=== PATIENT | male | born 1975 | race Caucasian/White ===

== ENCOUNTER 2023-03-26 09:42 | Outpatient (OUT) | payer OTHER, SELFPAY ==
--- NOTE | 2023-03-26 09:50 | XR_ITS ---
The [address] [address] Patient Name: NATHANIEL LOMAX MRN: [id number] date: 1975 Sex: M Assigned Patient Location: RAD Current Patient Location: [facility] Accession/Order Number: [id number] Exam Date: 03/26/2023 09:55 Report Date: 03/26/2023 10:15 At the request of: FALLON CARRASCO Procedure: XR abdomen 1V EXAM: XR abdomen 1V HISTORY: Microscopic Hematuria R31.29 COMPARISON: None. TECHNIQUE: AP view of the abdomen. FINDINGS: Nonobstructive bowel gas pattern is noted. There is no suspicious calcification. The osseous structures are intact. XR/XR abdomen 1V IMPRESSION: Nonobstructive bowel gas pattern. Constipation. Electronically authenticated by: ADELAIDE BALDWIN Date: 03/26/2023 10:15
== END 2023-03-26 09:43 | disposition home or self-care (01) ==
LOC: RAD 09:47
PROVIDERS: PCP Internal Medicine; Visit Provider Physician Assistant
DX: R31.29 Other microscopic hematuria (principal); K59.00 Constipation, unspecified
CPT/HCPCS: 74018

== ENCOUNTER 2023-04-08 08:32 | Outpatient (OUT) | payer OTHER, SELFPAY ==
--- NOTE | 2023-04-08 08:38 | CT_ITS ---
The [address] [address] Patient Name: NATHANIEL LOMAX MRN: [id number] date: 1975 Sex: M Assigned Patient Location: CT Current Patient Location: CT Accession/Order Number: [id number] Exam Date: 04/08/2023 08:55 Report Date: 04/08/2023 09:15 At the request of: FALLON CARRASCO Procedure: CT abdomen pelvis wo con EXAM: CT abdomen pelvis wo con HISTORY: Microscopic Hematuria , Abdominal Pain COMPARISON: None. TECHNIQUE: Axial soft tissue windows of the abdomen and pelvis with coronal and sagittal reformats. CT dose reduction technique was used including Automated Exposure Control. Findings: Lack of intravenous contrast limits evaluation. ABDOMEN: The liver, gallbladder, spleen, pancreas, and adrenal glands are unremarkable. Mild nonossific bilateral perinephric fat stranding. No renal stones or collecting system dilatation. The bilateral ureters are nondilated. Evaluation of the bowel is limited given the absence of oral contrast. No bowel obstruction. The appendix is nondilated. The aorta is normal caliber. Mild atherosclerotic disease. No enlarged abdominal lymph nodes or free abdominal fluid. Tiny fat-containing umbilicus hernia. Pelvis: Unremarkable bladder. The prostate is nonenlarged. No enlarged pelvic lymph nodes or free pelvic fluid. No aggressive sclerotic or lytic osseous lesions. Mild multilevel degenerative spondylosis. CT/CT abdomen pelvis wo con IMPRESSION: 1. No acute abdominal or pelvic abnormality. Electronically authenticated by: NATHANIEL OLVERA Date: 04/08/2023 09:15
== END 2023-04-08 08:33 | disposition home or self-care (01) ==
LOC: CT 08:32
PROVIDERS: PCP Internal Medicine; Visit Provider Physician Assistant
DX: R31.29 Other microscopic hematuria (principal); R10.30 Lower abdominal pain, unspecified; D72.829 Elevated white blood cell count, unspecified; R35.0 Frequency of micturition
CPT/HCPCS: 74176

== ENCOUNTER 2023-12-18 06:48 | Outpatient (OUT) | payer OTHER, SELFPAY ==
--- OUTSIDE RECORDS SUMMARY | 2023-12-18 06:50 | XMS_ITS | CCD ---
Author Organization [facility] Care Team Providers Care Sales Development Specialist Name Role Phone Unavailable Primary Care Provider Rama Valente MD Primary Care Provider Yumi Carrasco Primary Care Unavailable Ramesh Taylor Attending Unavailable Ramesh Taylor Admitting Unavailable Ramesh Taylor Attending Unavailable Ramesh Taylor Admitting Unavailable Yumi Carrasco Primary Care Unavailable Arron Ramirez Primary Care Physician UnavailArron eBgum Unavailable Unavailable Hemmer JIMBO, Yumi Wick Primary Care Unav ailPam Blanco Attending Unavailable Hemmer PAHugoC, Yumi Wick Primary Care Unav edna Montiel MD, Weston Sims Referring Unavaila agustin Montiel MD, Weston Sims Attending Unavaila ble Gely Rea Attending Unavailable Tiana LAKE, Weston Sims Referring Unavaila ble Hemmer MARYC, Yumi Wick Primary Care UnaArron Garcia Primary Care Physician UnavailArron Begum Primary Care Physician Unavailab Arron Nava Primary Care Physician Unavailab GRETA Malave Attending Unavailable JOSE OLIVEROS Attending Unavailable YUMI CARRASCO Attending Unavailable HEMYUMI PALAFOX Attending Unavailable HEMYUMI PALAFOX Attending Unavailable YUMI CARRASCO Attending Unavailable YUMI CARRASCO Attending Unavailable YUMI CARRASCO Attending Unavailable Allergies Allergy Classification Reported Allergen(s) Allergy Type Date of Onset Reaction(s) Facility (6 sources) Sulfamethoxazole / Trimethoprim Drug Allergy 02-25-19 13 [facility] (6 sources) Sulfonamides (Antibiotic) Propensity to adverse reactions to drug 01-16-20 12 Rash [facility] (5 sources) meloxicam Drug Allergy 08-07-19 23 [facility] (6 sources) Sulfonamides (Antibiotic) Allergy to substance (disorder) [facility] (1 source) Sulfonamides (Antibiotic); Translations: [sulfa drugs] Propensity to adverse reactions to drug (disorder) [facility] (4 sources) Honey bee venom Propensity to adverse reactions 10-06-19 Hives, Swelling [facility] Medications Current Medications Medication Drug Class(es) Dates Sig (Normalized) Sig (Original) cefdinir 300 mg oral capsule (1 source) Cephalosporin Antibacterial take 1 capsule by mouth twice daily cefdinir (OMNICEF) 300 MG capsule Take 300 mg by mouth 2 times daily 0 Active cholecalciferol 0.05 mg oral tablet (11 sources) Vitamin D Start: 09-12-2021 take 1 tablet by mouth once daily cholecalciferol (Vitamin D-3) 50 MCG (2000 UT) tablet Take 4,000 Units by mouth 1 (one) time each day at the same time 09/12/2021 Active take 1 capsule by mouth once jaden ly Vitamin D3 50 mcg (2,000 unit) capsule take 1 capsule by oral route daily clotrimazole 10 mg/ml topical cream (4 sources) Azole Antifungal Start: 03-26-2023 clotrimazole (Lotrimin) 1 % cream Indications: Candidiasis Apply topically 2 (two) times a day 35.4 g 03/26/2023 Active cyclobenzaprine hydrochloride 5 mg oral tablet (2 sources) Muscle Relaxant Start: 12-08-2023 End: 12-18-2023 cyclobenzaprine (Flexeril) 5 MG tablet Take 10 mg by mouth 12/08/2023 12/18/2023 Active [id number] 0.3 ml EPINEPHrine 1 mg/ml auto-injector (4 sources) alpha-Adrenergic Agonist, beta-Adrenergic Agonist, Catecholamine Start: 10-06-2023 EPINEPHrine (Epipen) 0.3 MG/0.3ML injection syringe Inject 0.3 mg under the skin 10/06/2023 Active esomeprazole 40 mg delayed release oral capsule (4 sources) Proton Pump Inhibitor take 1 capsule by mouth in the morning esomeprazole (NexIUM) [address] capsule Take 40 mg by mouth in the morning. Active lidocaine 0.05 mg/mg medicated patch (2 sources) Antiarrhythmic, Amide Local Anesthetic Start: 12-08-2023 End: 12-18-2023 lidocaine (Lidoderm) 5 % patch Place 1 patch on the skin 12/08/2023 12/18/2023 Active naproxen sodium 220 mg oral tablet (1 source) Nonsteroidal Anti-inflammatory Drug take 1 tablet by mouth three times daily as needed naproxen sodium (ALEVE) 220 MG tablet Take 220 mg by mouth 3 times daily as needed. 0 Active predniSONE 50 mg oral tablet (2 sources) Start: 12-08-2023 End: 12-13-2023 take 1 tablet by mouth once daily predniSONE (Deltasone) 50 MG tablet Take 1 tablet by mouth Daily 12/08/2023 12/13/2023 Active sildenafil 100 mg oral tablet (1 source) Phosphodiesterase 5 Inhibitor Start: 05-01-2012 sildenafil (VIAGRA) 100 MG tablet Indications: Erectile dysfunction Take 1 tablet by mouth as needed for Erectile Dysfunction. 30 tablet 3 05/01/2012 Active 1 ml testosterone cypionate 200 mg/ml injection (7 sources) Androgen Start: 11-29-2023 testosterone cypionate (Depo-Testosterone) 200 MG/ML injection Indications: Hypogonadism in male Inject 1 mL (200 mg) into the shoulder, thigh, or buttocks every 30 (thirty) days 1 mL 2 11/29/2023 Active Start: 06-26-2023 End: 11-29-2023 testosterone cypionate (Depo -Testosterone) 200 MG/ML injection Indications: Hypogonadism in male INJECT 0.5MLS INTO THE SHOULDER THIGH OR BUTTOCKS EVERY THIRTY DAYS. 1 mL 1 06/26/2023 11/29/2023 Discontinued (Reorder) Start: 01-14-2023 testosterone c ypionate (Depo-Testosterone) 200 MG/ML injection Indications: Hypogonadism in male Inject 0.5 mL (100 mg) into the shoulder, thigh, or buttocks every 30 (thirty) days. 1 mL 2 01/14/2023 Active traMADol hydrochloride 100 mg oral tablet (5 sources) Opioid Agonist Start: 11-18-2023 take 1 tablet by mouth once traMADol (Ultram) 100 MG tablet Indications: Osteoarthritis involving multiple joints on both sides of body Take 1 tablet (100 mg) by mouth every 12 (twelve) hours if needed for severe pain 60 tablet 11/18/2023 Active Start: 03-08-2023 take 1 tablet by benita th once daily traMADol (Ultram) 100 MG tablet Indications: Osteoarthritis involving multiple joints on both sides of body Take 1 tablet (100 mg) by mouth 1 (one) time each day at the same time 30 tablet 0 03/08/2023 Active Completed/Discontinued Medications Medication Drug Class(es) Dates Sig (Normalized) Sig (Original) Apple Cider Vinegar (6 sources) apple cider vine gar oral Beet Root (6 sources) take 1 tablet by benita th once daily Beet Root Take 1 tablet by mouth once daily. Fish Oils (6 sources) take 1 capsule by mo uth once daily Fish Oil 1,200 mg (144 mg-216 mg) capsule take 1 capsule by oral route daily Magnesium (6 sources) take 1 tablet by benita th once daily magnesium 250 mg tablet take 1 tablet by oral route daily Vitamin C oral (6 sources) Vitamin C oral t adarsh 1 by oral route daily zinc gluconate 50 mg oral tablet (6 sources) take 1 tablet by benita th once daily zinc gluconate 50 mg tablet take 1 tablet by oral route daily Problems Active Problems Problem Classification Problem Date Documented Date Episodic/Chronic Allergic reactions (3 sources) Allergy to honey bee venom; Translations: [Bee allergy status] Onset: 4 11-29-2023 Episodic Cardiac dysrhythmias (1 source) Palpitations; Translations: [Palpitations] Episodic Disorders of lipid metabolism (5 sources) Mixed hyperlipidemia; Translations: [Mixed hyperlipidemia] Onset: 3 08-06-2022 Chronic Disorders of teeth and jaw (6 sources) Arthralgia of temporomandibular joint, unspecified side Episodic Esophageal disorders (4 sources) Gastroesophageal reflux disease without esophagitis; Translations: [Gastro-esophageal reflux disease without esophagitis] Onset: 4 04-26-2023 Chronic Essential hypertension (20 sources) Essential (primary) hypertension; Translations: [Essential hypertension] Onset: 4 11-29-2023 Chronic Nutritional deficiencies (5 sources) Vitamin D deficiency; Translations: [Vitamin D deficiency, unspecified] Onset: 3 08-06-2022 Chronic Osteoarthritis (7 sources) Osteoarthritis of multiple joints ; Translations: [Polyosteoarthritis, unspecified] Onset: 3 08-06-2022 Chronic Other circulatory disease (12 sources) Other specified symptoms and signs involving the circulatory and respiratory systems Onset: 4 Episodic Other connective tissue disease (4 sources) Muscle weakness of limb; Translations: [Other symptoms and signs involving the musculoskeletal system] 12-10-2023 Episodic Other ear and sense organ disorders (6 sources) Unspecified hearing loss, unspecified ear Chronic Other endocrine disorders (12 sources) Male hypogonadism; Translations: [Testicular hypofunction] Onset: 3 Resolved: 3 07-12-2022 Chronic Other nervous system disorders (4 sources) Unable to stand up; Translations: [Other general symptoms and signs] 12-10-2023 Episodic Other non-traumatic joint disorders (6 sources) Arthropathy of spinal facet joint; Translations: [Spondylosis without myelopathy or radiculopathy, lumbosacral region] Onset: 4 12-10-2023 Chronic Other nutritional; endocrine; and metabolic disorders (7 sources) Body mass index 30+ - obesity; Translations: [Obesity, unspecified] Onset: 3 08-06-2022 Chronic Other nutritional; endocrine; and metabolic disorders (7 sources) Obesity, unspecified Onset: 4 Chronic Other upper respiratory disease (6 sources) Other voice and resonance disorders Episodic Other upper respiratory disease (6 sources) Other diseases of larynx Episodic Peripheral and visceral atherosclerosis (16 sources) Atherosclerosis of aorta; Translations: [Atherosclerosis of aorta] Onset: 4 04-26-2023 Chronic Spondylosis; intervertebral disc disorders; other back problems (4 sources) Spondylosis of thoracolumbar spine; Translations: [Spondylosis without myelopathy or radiculopathy, thoracolumbar region] Onset: 4 12-10-2023 Chronic Spondylosis; intervertebral disc disorders; other back problems (11 sources) Cervicalgia; Translations: [Sciatica, right side] Onset: 4 Episodic Substance-related disorders (7 sources) Tobacco dependence syndrome; Translations: [Nicotine dependence, unspecified, uncomplicated] Onset: 3 08-06-2022 Chronic Past or Other Problems Problem Classification Problem Date Documented Date Episodic/Chronic Inflammatory conditions of male genital organs (6 sources) Orchitis; Translations: [Orchitis] Onset: 01-16-2012 01-16-2012 Episodic Malaise and fatigue (5 sources) Fatigue; Translations: [Other fatigue] Onset: 08-06-2022 08-06-2022 Episodic Other circulatory disease (5 sources) Elevated blood-pressure reading without diagnosis of hypertension; Translations: [Elevated blood-pressure reading, without diagnosis of hypertension] Onset: 08-06-2022 Resolved: 04-26-2023 08-06-2022 Episodic Unclassified (2 sources) Spondylosis of thoracolumbar spine 12-10-2023 Results Test Name Value Interpretation Reference Range Facility XR LUMBAR SPINE (2-3 VIEWS)o n 12-08-2023 XR LUMBAR SPINE (2-3 VIEWS) EXAMINATION: XRAY VIEWS OF THE LUMBAR SPINE 12/08/2023 5:46 pm COMPARISON: None. HISTORY: ORDERING SYSTEM PROVIDED HISTORY: pain TECHNOLOGIST PROVIDED HISTORY: pain FINDINGS: Lumbar vertebral bodies are normal in height and alignment. No evidence of fracture. Visualized sacrum is unremarkable. Multilevel spondylosis in the thoracolumbar junction. Mild facet arthropathy in the lumbosacral junction. IMPRESSION: No acute osseous abnormalities. Interpreted by: Kings Garcia MD Signed by: Kings Garcia MD 12/08/23 Final result Normal [facility] - Chemistry and C hemistry - challengeon 07-10-2023 Albumin [Mass/Vol] 4.70 g/dL Invalid Interpretation Code 3.7-5.0 [facility] Albumin/Globulin [Mass ratio] 1.4 {ratio} Invalid Interpretation Code 1.0-2.4 [facility] ALP [Catalytic activity/Vol] 67.0 U/L Invalid Interpretation Code 31-155 [facility] ALT [Catalytic activity/Vol] 28.0 U/L Invalid Interpretation Code 0-50 [facility] Anion gap [Moles/Vol] 17 mmol/L Invalid Interpretation Code 10-20 [facility] AST [Catalytic activity/Vol] 31.0 U/L Invalid Interpretation Code 0-40 [facility] Bilirubin [Mass/Vol] 0.50 mg/dL Invalid Interpretation Code 0.0-1.0 [facility] Calcium [Mass/Vol] 9.50 mg/dL Invalid Interpretation Code 8.5-10.8 [facility] Chloride [Moles/Vol] 102.0 mmol/L Invalid Interpretation Code 100-112 [facility] Cholesterol [Mass/Vol] 148.0 mg/dL Invalid Interpretation Code 0-200 [facility] Cholesterol in HDL [Mass/Vol] 37.0 mg/dL Invalid Interpretation Code 36-100 [facility] Cholesterol in LDL [Mass/Vol] 94.0 mg/dL Invalid Interpretation Code 0-130 [facility] Cholesterol in VLDL [Mass/Vol] 17.0 mg/dL Invalid Interpretation Code 0-39 [facility] Cholesterol.total/C holesterol in HDL [Mass ratio] 4 {ratio} Invalid Interpretation Code [facility] CO2 [Moles/Vol] 23.0 mmol/L Invalid Interpretation Code 23-30 [facility] Creatinine [Mass/Vol] 0.90 mg/dL Invalid Interpretation Code 0.5-1.5 [facility] Glucose [Mass/Vol] 78.0 mg/dL Invalid Interpretation Code 80-117 [facility] Potassium [Moles/Vol] 4.50 mmol/L Invalid Interpretation Code 3.5-5.3 [facility] Protein [Mass/Vol] 8.10 g/dL Invalid Interpretation Code 6.3-7.9 [facility] Sodium [Moles/Vol] 137.0 mmol/L Invalid Interpretation Code 135-148 [facility] Triglyceride [Mass/Vol] 86.0 mg/dL Invalid Interpretation Code 30-150 [facility] Urea nitrogen [Mass/Vol] 18.0 mg/dL Invalid Interpretation Code 7-25 [facility] Urea nitrogen/Creatinine [Mass ratio] 20 mg/mg Invalid Interpretation Code 6-20 [facility] No Panel Informationon 07-09 105 Invalid Interpretation Code [facility] VL Carotid Duplex Bilateralo n 06-24-2023 VL Carotid Duplex Bilateral Preliminary Technologist Report Bilateral carotid ultrasound study was performed. Please see the information that is listed below. Retouching Operator: Shamika James LPN/DANIELT Radiologist Report BILATERAL CAROTID DUPLEX ULTRASOUND STUDY CLINICAL INFORMATION: 48-year-old male with aortic stenosis and hypertension.. COMPARISON: No relevant prior. TECHNIQUE: Color flow and winston-scale imaging of the carotid and vertebral arteries with doppler spectral analysis. Brachial systolic pressures are symmetrical and measure 146 mm hg on the right and 148 mm hg on the left. FINDINGS: LEFT CAROTID AND VERTEBRAL: CCA 106.44 cm/s BULB 72.52 cm/s ECA 66.94 cm/s ICA Prox 60.34 cm/s Dist 47.89 cm/s VERT 35.68 cm/s antegrade Estimated Stenosis by Velocity Criteria in the ICA = <50% ICA/CCA Ratio = 0.6 RIGHT CAROTID AND VERTEBRAL: CCA 90.43 cm/s BULB 59.40 cm/s ECA 93.52 cm/s ICA Prox 59.40 cm/s Dist 45.17 cm/s VERT 35.06 cm/s antegrade Estimated Stenosis by Velocity Criteria in the ICA = <50% ICA/CCA Ratio = 0.7 IMPRESSION: 1. No evidence for greater than 50% stenosis of the ICAs by velocity criteria. 2. Antegrade flow in the vertebral arteries. Final Signed by: Anil Gu MD Signed (Electronic Signature): 06.24.2023 12:59 pm Transcribed by: Anil Gu MD Transcribed DT/TM: 06.24.2023 9:20 (If Report is Signed, Electronically Signed in Other Vendor System) Normal [facility] No Panel Informationon 06-16 Tobacco smoking status Current Tobacco User Invalid Interpretation Code [place] So1 Coding Summaryon 05-21-2023 Coding Summary HTMLBase 64 EkcsonkuQCg3iAi+PGh lYWQ+RF3GCYUjO24vkC ZkwS0zT4KBRWpMLinwH VMXLPkSHbXiwjZaCH0u aXNjZXJu IC8+AY3mDJSgUzyfzMS in7I3yZP9R95qqr2wLE hbmJJ6PQAePlEchcfrz 1unwBc0XKvgCldgOgWf RHQdgN83LPF7tF58Vk1 9aCBevCOev7thrKp0Uh TsHWYtBOT5oCllXYdny 0TqQJZgN59wuHZcw4Y8 IGNvbGxhcHNlOyBlbXB 1yG8uBEimctjpq7cuqm xxEvc6er65aVCtg0Y7i RR8F3UlysF6HQHieLMw YqttaGIIwP5gdmhpj5h gcjmrTeVzMAEzKXg9LL k0KLPynRgsLhZaHV67Y LV0CWLwkfLxE1SzVUBf mRiiUnY0m0L8Vw4LK5J DGmluA6NWHXZBVGomeN Q+ZN43ft29C8QlKbogH vn1VEEgXZD6pHM7lW1m KPNmQKdny0G9dQQ4C5V xwnFtvf3hy8aiAJGfJT wxS69khHCez7D2UHAqg PE1NCIbaXdwTbDuoR12 Oyc+YELdwVhdg4TxYmp ny7zfa6xzzDd5VopfLB XtjgJnvGpfADN5x7UsT r6aFBFqgXQ4pWW1lN3a SfEfJyD7CAsfV909MhS yaLKnVapeN61kE9BgoB A+BYWyMig1UVPfkLraL I3kA9PnFIWrgdqunUCm wSwtBI1sGVXvdkdkLBM jfC6hZTYtN9z2VbCwIy M7NCgqW3KuQQZvolniX y22jK7iLsCwKjX4ZOyz Q9StddW5ABBdjDJkCBf aPUG3W20xl1E9LDGwBI MmXYX2vPH1mO8xdMukr jogbGVmdDsgdmVydGlj XQccUAuaU601IOSxoHm nPkNvZGluZyBEYXRlOi AgMDQvMDIvMjAyNDwvd GQ+WVWnXJK7oOyoXRYe bLTfERhxWf8jdFabzPt vRE6mSPImpzdpNPAlaW 1yPNSgvQHpmHafKC6sX HOkrrhwo340QtBfTKB4 GALqdYAfS8EkrT6kTlK vUYFmUPClH7ZjsSPvFO jtS823PJlpWjK9HSMuy oZqH7IpMAZsoKztKyC6 a2R3Xi1Ko6KpwpvoO6X dkUNpUsGtQzbrRTq4H7 RkPjwvdHI+SJ85FLQgD H85FJa6TJY2zUzgSBad QLAtQ8TbsW0bTiZpHRT kZGRkOyc+PHRhYmxlIH dpZHRoPScxMDAlJyBzd QebVA4sVo5jPSNpLZFy eWhpqAEgYvKnb1pyXUL oWSmlTI2thPpbX9NlqD F4QTRvs4v8Ms12S36qI 3JvdXA+ZUPdlSU0sVW9 gA8rUuXlIbX5YCulB17 2PkHlqKFeCmgup9hso7 qszLe9SxU1NODenbKba NsuNKT9j2GdNi59K61k IHdpZHRoPSIxNSUiIHZ sgWbjxf4xtW4kJs6+PG TjhEJ8qLQ0nZ8zNiKeM hE7MNldH545HvBjsDDo Mmwht7cny3mgcDm8JrB rBIQpdfDkxUqeZHN9g2 RrXo80P5RmvHien6YyD rv9fn19hVJvh0P6pRK7 L0OcPPJvluccpCKnlMj uSH3iGWIvwusyMVGcsR 5tWSQwJ3t8VqWwOeQ8T PynQ8XuqbA4TJRhaNMh BIMxmGNEdB7plzzku8i vnqbvArBlTFCrASv0JT x8SSKotLgoOjKbEDM1A zX5IQS8jTWkuC9ylVib azmktC6hSdd+OKS2gIV ewNAARJ3pCludpQI+PH AjOYN4fJiuSTrtSWDag N9xCKEwA7d0OoOyMhK7 AUliQ8JxhkA9QZGtcNT jTZZjlZTBeS7mnkait9 mdbuxyAfSwZYPbWPm3S Tz3RICagPqvAkRgYZG5 LiQ6VFK6wRNagJ0gbQr nqdijaB2nQjg+QmlydG vqYCC6QYa1C2OsEgg5H LVopTtyRV1liOBfEKdz Wr6fwErrhFfdGQ1eCFU plrfsc483OrQgc1roKB AuvSMiVLltSZK7R34tn 1B6NBPpPBLjIRK3xRT1 xY9obXbfezldvHAonMz gdmVydGljYWwtYWxpZ2 12PSBdfNlhToOrWMx2F 4BrUgr2XUGxmPvqNC9v kYMmKTpbGi1unArojIc lBS1vEASizfulq937Ts Swe5efCJAbpKOkQKbaF QL4O27gr7W8QRXkYVUh JKR2xQL7jO5orKzapyg gbGVmdDsgdmVydGljYW zzSPklX558EFKblXmeV oYonHl7D3PqRav7IFUb jQmzML9vwXEcCNhqBd1 dqLgnaFnhAV7qMPZwid orb537XhXpu9anLXWyx TIsZSqcZTT7V56js5F9 TGQuDBDzOZK5zZS0uN7 hbGlnbjogbGVmdDsgdm DaiItfLAgeFVipZ852X HRvcDsnPlBhdGllbnQg NWdeUMw6Q5OmFqmmwJC +VM53XWMvBY51lWRbpN Dsa9zokEx6HmArMTKsT JD7mBjiBBqwk3RySWHh M27udCXrw1M3ECOwsWh mcHVjQiVqcGR8aG9zSA rntayrs5hriudqYxzdf 3lveg58gY11C59tHVjs ZHRoPSIzMCUiIHZhbGl zak8xoS6eAc9+PGNvbC C6qSD1xM9oSMXyNxN7C WbaR512NqCgoMWpKcsh o6fjp1plsCn1FdA3TQW jndOzyLblZLE8f3StUg 54P21qWEefLODnUQWnT PSrYJUvkHudtk6fzU1k Ii8+SVLcoXR5wDP3fK4 oDkOrBkM6MGfaB234Cz IqeGTxBcecN96vK6Btw XA+AJGsSzg3HFJulAdc EU0cvQRsXIfjAu5bQCX 7DcZmHfIgROwaE7RuUD AqjnbbdlnepRM6EQJwF KLahQ39Wk3diMaiEQUy vLETfG1nejuit9chiur wLaZsVIMcEYc8TYg8HX WhjQouFjGaGAD1LgD2C YZ9uMTwoD2jxVbzgshm tJ8hW0YkGEEsifjfKb1 3bI6pIoIeWfN0KIirRk c+SEVSUklORywgSkFNR CAnHfNKLlgJNZ27M5Fe Yvu3FVKhhSzpCX2tqTN nCGigJy9qgZbgfSsaBZ 6iBZUrxksnYCVrfC2nJ PVoxFWvcClgYM3tCNHy huzba026QsDoRYR5CFK wgKZpP7LviN8xPoYjBK NtWSMbV3MxdHVrMJjwS 358PVbwZjU3TUZhqtBn Z6GtNSVbgQbgZsI5i6Q 2Sp4nYB0eOC3hIZu9FI 92VO31zFFkj6D3mWD8L 6NeXOOaicceahjoeUK4 YJMvVMJgxE69rJQvAKj lOv3yu2J5y077BSOrYW MoaH37Ie0vmCuaUENgl KXSnF5uxsnqh3ksnvjr CbSuORWbSUe7HMw0DOB coLggSzTtVUQ1FcR5XN N6lGQacV6djMykyxfai G9wOyc+NDcgWWVhcnM8 N8IxGcf2FCAsmTibOE9 kmIZuRKohRv2clGvtdB miRW0fAQZhajwlOLYnn J3oIAKsiCGjhEzmKI0n VLUccghgn741OwFgZKA 6HWZzaTPaI1NymQ9rTr PsZSXmAYHsW6QmnCJeE BewX641LUmtGrM5VOLz siSiY3VwJONvdVlvNqA 1x3K2Lh5KEVsACE45DW 05cOEux8P3eON6T3NaL PYgwrtuuvaycAL9ARMo IKArlZ27uVJnALgmHt5 ub2Y7r888GCOiIXYutZ 04Qt8ggMezVQPdiZQNn U0bexczv5dnnnruDkWu FRPrYRe9LLa5XEBrqOj yEmEwCBD8WhP1CZJ9pN DwhK3paJzwpptkgD3zT yc+L3K2H8TeTrslgOM+ UV70TBArDX75mZFdyGS gh6qmwTa9NgFsCBBgZI X7pRobUJxjz8ItSLLvO 60vbYLsb2B8EIJyuUkl vICaYpKigMQ3cQ9uMXc mwsiry8mbfaneXweso2 cqzw63nC07K76pWAnyM HRoPSIzMCUiIHZhbGln rh6qeX7fLf5+PGNvbCB 7gWK8vJ8nRzNcBbA9QD yvC384FiSbjBDwUgkpn 8tyy9xonFs0BaEsUULo plNooOfoIND2m9FvCu1 4M08yJRteAVGnBOPtSA QwQFZgbGivom1woI1nT i8+SA4uu6omxy34rL89 dHI+ZRFnPZL5hHpeSWy iHEEamE5kORfmQjH9RT ZhJtXmdM01qEIpQQfoW h6tfLuuoKozOH2xRWPc cvcaa560YjZyb3rfWKU ypNFgXNwhNWF7R33jy5 S4ABJkBCQoWFH0eQF4w Y2wuShkqypcrQHxgXae iuOeqHavXPisPIejF31 3MRVsqGnbSzKtmVZaT3 yknvYDLX6eYsqxaEU+P YWoFWD5oIpkGQzlJYUn pI3eOQJyF6j7PyUlVfS 1ZPyvO4XcbtH9BPKagE HrAWApmQYYkX0tnqvvy 6onuebqLjWgMEFiHLj3 WVx4NDJpeIxaWdDlDID 9TkN2KYJ0mUOhkL3aeW wizdilkA2qLdi+RklOO jwvdGQ+ZYUgYMX7gVxs KCxpGEUlrD8yFVBpV7f 8GxMtErJ3KXxuJ0Hvng S1KTVgmAIsQUFdoSYUb P3ejgwiy1edbbilOxLu VGCmOCn0AZb2ANJjdVa cAwQiVMF5MdG8TVQ7mP UhtI2zwOhasgzazS3uD yc+TVJOOjwvdGQ+PHRk MJB8rWelVGlfQWXaxR6 mYQIuZ7z2WaCsCvO5AE dyQ0WfmuR4FUMsjRUtG JXqlFOMdM7mlatah6uq uzhjQfHlGHVgYWo8CAs 8CEUjqKdwLlZjRUM1Gk D0FWP8sABngY5amPqwx hyzvA9wPlu+HPY8KHM1 SJ25AD28Y1JuPmgmdNJ ibGU+PHRhYmxlIHdpZH RoPScxMDAlJyBzdHlsZ Y4vTa1iBBJzKPQjwRmi cHN (more content not included)... [facility] Provider Orderson 05-14-2023 Provider Orders [id number] [facility] Sperm Count Post Vason 05-13 Post Vas Screen None [facility] Comment on above: Performed By: #### 1 [id number] #### [facility] (DEFAULT) [address] [place] [address] Semen WBC >20 [facility] Comment on above: Performed By: #### 1 [id number] #### [facility] (DEFAULT) [address] [place], [place] [id number] Audiology Office/Clinic Note on 04-25-2023 Audiology Office/Clinic Note History Patient was seen today for a hearing test. He was seen prior to his appointment with Dr. Montiel. Patient reports a long history of aural fullness, bilaterally (left worse than right). He feels like he has water in his ears which never clears. He denies hearing loss and tinnitus. He reports some episodes of dizziness when the aural fullness is at it's worst. He denies family history of hearing loss and history of noise exposure. He additionally notes tenderness in his neck and reports his father has a history of throat cancer so he would like to have this checked. Otoscopy was unremarkable, bilaterally. Tympanometry yielded Type C tympanogram in the right and Type As with negative pressure in the left. Pure tone testing revealed normal hearing through 3kHz sloping to a moderate sensorineural hearing loss, bilaterally. Note air-bone gap in the right ear 500-1000Hz. Word recognition ability RIGHT: 96% @ 65dB LEFT: 100% @ 65dB Using recorded IRAJ W22 1 & 2 word lists. Summary Results were reviewed with the patient and his . Findings from today?s testing revealed normal hearing through 3kHz sloping to a moderate sensorineural hearing loss, bilaterally, with air-bone gaps noted in the right ear 500-1000Hz. Recommendations 1. Follow-up with ENT as scheduled. 2. Re-test hearing every 1-2 years or sooner if changes are noted. 3. Hearing protection in noise. Electronically signed by Gely Rea 04/25/23 12:05 EST Normal [facility] Otolaryngology Office/Clinic Noteon 04-25-2023 Otolaryngology Office/Clinic Note Chief Complaint Pt states fluid in ears History of Present Illness This is a very pleasant 47-year-old gentleman who comes here today with complaints related initially to his ears. He complains of fullness in his ears with pressure worse in his left ear. There is no drainage but there is some discomfort. He denies history of significant noise exposure except to music. He does so go hunting but apparently uses protection. In addition he complains of reflux needing antiacids multiple times as well as some associated hoarseness. He is a smoker about a pack a day but consumes no alcohol. There is no dysphagia but there is occasional globus sensation. Review of Systems General Cardiovascular EENMT Ear drainage: Yes Ear pain: No Hoarseness: No Nasal congestion: Yes Nasal discharge: Yes Sore_throat: No Tinnitus: Yes Gastrointestinal Genitourinary Hematologic/Lymphat ic Musculoskeletal Neurological Psychiatric Respiratory Skin Physical Exam Vitals & Measurements T: 36.7 ?C (Temporal Artery) HR: 79 (Peripheral) BP: 157/105 HT: 184.5 cm WT: 126.6 kg WT: 126.6 kg (Dosing) BMI: 37.19 General: [Alert and oriented, well nourished, no acute distress]. Eye: [PERRL, EOMI, normal conjunctiva]. HENT: [Normocephalic Ears: Both external ears are healthy without disease. The ear canals are clear with minimal cerumen and the TMs were visualized using the microscope noting no evidence of acute or chronic disease. The middle ears are aerated and landmarks are unremarkable. Nose: External nose midline without deformity. The septum has some mild spurring anteriorly but otherwise the airway is adequate without purulence or stasis. OC/OP: Good dental repair with healthy moist mucosa. Oropharynx reveals a very active gag reflex with no postnasal drainage. Neck: [Supple, bilateral TMJ pain to discomfort with jaw motion as well as discomfort involving the stylohyoid musculature., no lymphadenopathy]. Lungs: [Clear to auscultation and percussion, non-labored respiration]. Heart: [Normal rate, regular rhythm, no murmur, gallop or edema]. Skin: [Skin is warm, dry and pink, no rashes or lesions]. Neurologic: [Awake, alert, and oriented X3, CN II-XII intact]. Psychiatric: [Cooperative, appropriate mood and affect]. Flexible laryngoscopy: I decongested and anesthetized patient's nasal airway and approximately 5 minutes later perform flexible endoscopy through the patient's left nostril.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
--- NOTE | 2023-12-18 07:04 | MR_ITS ---
The [address] [address] Patient Name: NATHANIEL LOMAX MRN: [id number] date: 1975 Sex: M Assigned Patient Location: MRI Current Patient Location: Accession/Order Number: [id number] Exam Date: 12/18/2023 07:05 Report Date: 12/19/2023 07:29 At the request of: FALLON CARRASCO Procedure: MR lumbar spine wo con EXAMINATION: MR lumbar spine wo con HISTORY: arthopathy of lumbosacral facet joint COMPARISON: No relevant comparison available. TECHNIQUE: A variety of imaging planes and parameters were utilized for visualization of suspected pathology. FINDINGS: For the purposes of numbering, sagittal T2 image # 8 extends from the T11 vertebral body superiorly to the S3 level inferiorly. PARASPINAL AREA: Normal with no visible mass. BONES: Normal alignment with no acute fracture or spondylolisthesis. No bone edema. Moderate spondylosis CORD/CAUDA EQUINA: Normal caliber, contour, and signal intensity. DISC LEVELS: 12-L1: No significant disc/facet abnormality, spinal stenosis, or foraminal stenosis. L1-L2: No significant disc/facet abnormality, spinal stenosis, or foraminal stenosis. L2-L3: Right foraminal disc herniation of the extrusion type extending posteriorly up to 4.3 mm best seen on sagittal image #12. This effaces the exiting nerve. No central canal or left foraminal stenosis L3-L4: Disc desiccation. No significant disc bulge or herniation. No central or foraminal stenosis L4-L5: Disc desiccation. No significant disc bulge or herniation. No central or foraminal stenosis L5-S1: Disc space narrowing and disc desiccation. No central or foraminal stenosis MR/MR lumbar spine wo con IMPRESSION: Right foraminal disc herniation L2-L3 effacing the exiting nerve. These findings are consistent with the patient's clinical symptoms Electronically authenticated by: JESSICA PETERSON Date: 12/19/2023 07:29
== END 2023-12-18 06:49 | disposition home or self-care (01) ==
LOC: MRI 06:48
PROVIDERS: PCP Internal Medicine; Visit Provider Physician Assistant
DX: M47.817 Spondylosis without myelopathy or radiculopathy, lumbosacral region (principal); M47.815 Spondylosis without myelopathy or radiculopathy, thoracolumbar region; R68.89 Other general symptoms and signs; R29.898 Other symptoms and signs involving the musculoskeletal system; M51.26 Other intervertebral disc displacement, lumbar region
CPT/HCPCS: 72148

== ENCOUNTER 2023-12-23 19:40 | Emergency (ER) | payer OTHER, SELFPAY ==
[2023-12-23 19:51] VITALS: BP 148/102; PULSE 88; TEMP 36.7; O2SAT 98; BMI 323.5
--- NOTE | 2023-12-23 19:58 | ED.BACK1 ---
HPI HPI - Back Pain/Injury General Chief Complaint: Back Pain/Injury Stated Complaint: BACK PAIN Time Seen by Provider: 12/23/23 19:45 Source: patient Mode of arrival: stretcher History of Present Illness HPI Narrative: This 48-year-old male presents for evaluation of severe right sided back pain. He states he twisted a couple weeks ago and has been having pain since that time. He was seen by his family physician and an MRI of his lumbar spine was ordered that shows a L2-L3 right foraminal disc herniation of the extrusion type extending posteriorly to 4.3 mm that effaces the exiting nerves with no central canal or left foraminal stenosis. The patient states he was referred to neurosurgery but has not had an appointment made for him yet. He states he is having severe right sided back pain that goes down his leg with numbness and tingling of the right thigh and a stabbing sensation into the right knee with decreased sensation from his knee to his foot. He has not lost bowel or bladder control but states he typically can sleep all night without having to urinate but he now has to get up several times throughout the night to urinate and when he gets up he has muscle spasms in his back. He had to be helped out of his car due to the fact that he cannot stand or sit comfortably. He denies any shy injury. He denies any chest pain or shortness of breath. He has been prescribed tramadol without significant relief of his pain Related Data Home Medications ?Medication ?Instructions ?Recorded ?Confirmed tramadol 100 mg tablet 100 mg PO Q6H 12/23/23 12/23/23 Allergies Allergy/AdvReac Type Severity Reaction Status Date / Time No Known Drug Allergies Allergy Verified 12/23/23 19:56 Opioid HPI Opioid Management Most Recent Opioid Data: No Data to Display Review of Systems ROS Status of ROS 10 or more systems reviewed and unremarkable except as noted in history and below PFSH PFSH Social History Little interest or pleasure in doing things: not at all Feeling down, depressed, or hopeless: not at all Exam Narrative Exam Narrative: Vital signs and Nursing Notes reviewed: Patient is afebrile with a normal pulse, blood pressure is elevated 148/102, he is not hypoxic with pulse ox of 98% on room air General: Awake, alert, oriented, nontoxic but uncomfortable appearing male, no respiratory distress he is lying flat on the bed HEENT: Normocephalic atraumatic, mucous membranes are moist and pink, eyes are clear, normal conjunctiva, vision is grossly intact Chest: Lungs are clear to auscultation with good air entry, there is no wheezing rhonchi or rales appreciated no accessory muscle use, patient is speaking in complete sentences-no chest wall tenderness to palpation CVS: Regular rate and rhythm S1-S2, no murmurs rubs or gallops, pulses are brisk and equal bilaterally ABD: Soft, nondistended, nontender, no rebound guarding or rigidity, bowel sounds are normal, no pulsatile masses appreciated Musc: There is tenderness distal palpation in the right lower lumbar spine and right buttock area. There is dysesthesia of the right thigh but the patient is able to sense my light touch and pressure. There is no saddle anesthesia. Push pulls of the lower extremities were done but diminished on the right compared to the left. Skin: Normal in appearance without rash,pallor, petechiae or purpura Neuro: No focal deficits Constitutional Vital Signs, click to edit/add: Last Vital Signs Temp 98.0 F 12/23/23 19:51 Pulse 78 12/23/23 22:06 Resp 18 12/23/23 22:06 BP 163/102 H 12/23/23 22:06 Pulse Ox 98 12/23/23 22:06 O2 Del Method Room Air 12/23/23 22:06 Course Vital Signs Vital signs: Vital Signs Temperature 98.0 F 12/23/23 19:51 Pulse Rate 88 12/23/23 19:51 Respiratory Rate 18 12/23/23 19:51 Blood Pressure 148/102 H 12/23/23 19:51 Pulse Oximetry 98 12/23/23 19:51 Oxygen Delivery Method Room Air 12/23/23 19:51 Temperature 98.0 F 12/23/23 19:51 Pulse Rate 78 12/23/23 22:06 Respiratory Rate 18 12/23/23 22:06 Blood Pressure 163/102 H 12/23/23 22:06 Pulse Oximetry 98 12/23/23 22:06 Oxygen Delivery Method Room Air 12/23/23 22:06 MDM - Back Pain/Injury MDM Narrative Medical decision making narrative: This 48-year-old male who was recently diagnosed with an L2-L3 herniated disc presents for evaluation of increasing pain and development of numbness and stabbing pain in his right lower extremity. These findings are consistent with his MRI. He has been using tramadol without relief of his pain and taking some of his 's muscle relaxants. He was referred to outpatient Orthopedic:/Neurosurgery but thus far unable to procure an appointment. I did speak to Dr. Tijerina who will see the patient in his office in [facility] on Saturday. He was medicated emergency department with IV Solu-Medrol, Dilaudid, IM Valium and IV Toradol. On reevaluation he is feeling better and able to move the right leg. He got out of bed and had additional spasms in his back and was placed back in the bed and given additional dose of Dilaudid and oral Valium. He will be discharged home with prescription for oral Valium, Percocet, and prednisone. He plans to see the neurosurgeon on Saturday. Discharge Plan Discharge Chief Complaint: Back Pain/Injury Clinical Impression: Herniated lumbar intervertebral disc Patient Disposition: Home, Self-Care Time of Disposition Decision: 21:36 Condition: Fair Prescriptions / Home Meds: No Action tramadol 100 mg tablet 100 mg PO Q6H Print Language: Angolan Instructions: Lumbar Disc Herniation (ED), Lumbar Radiculopathy (ED) Referrals: SEAN SMITH [Primary Care Provider] - 1 week Cyrus Balderas MD [Physician] - As soon as possible (Call office for appointment on Saturday in [place]) Discharge Date/Time: 12/23/23 22:06
[2023-12-23] MEDS: METHYLPREDNISOLONE SOD SUCC PF 125 MG/2 ML VIAL IVP (20:36)
[2023-12-23] MEDS: DIAZEPAM 10 MG/2 ML SYRINGE 5 MG IM (20:37)
[2023-12-23] MEDS: ONDANSETRON PF 4 MG/2 ML VIAL IV (20:37)
[2023-12-23] MEDS: KETOROLAC TROMETHAMINE 30 MG/ML VIAL IVP (20:37)
[2023-12-23] MEDS: HYDROMORPHONE HCL 1 MG/ML CARTRIDGE IV ×2 (20:37→21:52)
--- NOTE | 2023-12-23 21:11 | PC.NURSE ---
Pt has stated that he has had some pain relief after medications were administered. remains at bedside. Denies any needs at this time.
[2023-12-23] MEDS: OXYCODONE HCL/ACETAMINOPHEN 5MG/325MG 1 TAB PO (21:51)
[2023-12-23] MEDS: OXYCODONE HCL/ACETAMINOPHEN 5MG/325MG 2 TAB PO (21:51)
[2023-12-23] MEDS: DIAZEPAM 5 MG TABLET PO (21:51)
[2023-12-23 22:06] VITALS: BP 163/102; PULSE 78; O2SAT 98
== END 2023-12-23 22:06 | disposition home or self-care (01) ==
PROVIDERS: Emergency Provider Emergency Medicine; PCP Internal Medicine
DX: M51.26 Other intervertebral disc displacement, lumbar region (principal)
CPT/HCPCS: 96372; 96374; 96375; 96376; 99285; J1171; J1885; J2405; J2919; J3360

== ENCOUNTER 2024-01-03 08:00 | Outpatient (OUT) | payer OTHER, SELFPAY ==
--- OUTSIDE RECORDS SUMMARY | 2024-01-03 08:10 | XMS_ITS | CCD ---
Author Organization [facility] Care Team Providers Care Reporting Lead Name Role Phone Unavailable Primary Care Provider Rama Valente MD Primary Care Provider Yumi Carrasco Primary Care Unavailable Ramesh Taylor Attending Unavailable Ramesh Taylor Admitting Unavailable Ramesh Taylor Attending Unavailable Ramesh Taylor Admitting Unavailable Yumi Carrasco Primary Care Unavailable Arron Ramirez Primary Care Physician Unavailab Arron Nava Unavailable Unavailable Hemmer JIMBO, Yumi Wick Primary Care Unav ailPam Blanco Attending Unavailable Hemmer PAHugoC, Yumi Wick Primary Care Unav edna Montiel MD, Weston Sims Referring Unavaila agustin Montiel MD, Weston Sims Attending Unavaila ble Gely Rea Attending Unavailable Tiana LAKE, Weston Sims Referring Unavaila ble Hemmer MARYC, uYmi Wick Primary Care UnaArron Garcia Primary Care [...] Allergy Type Date of Onset Reaction(s) Facility (7 sources) Sulfamethoxazole / Trimethoprim Drug Allergy 02-25-19 13 [facility] (7 sources) Sulfonamides (Antibiotic) Propensity to adverse reactions to drug 01-16-20 12 Rash [facility] (6 sources) meloxicam Drug Allergy 08-07-19 23 [facility] (6 sources) Sulfonamides (Antibiotic) Allergy to substance (disorder) [facility] (1 source) Sulfonamides (Antibiotic); Translations: [sulfa drugs] Propensity to adverse reactions to drug (disorder) [facility] (5 sources) Honey bee venom Propensity to adverse reactions 10-06-19 Hives, Swelling [facility] Medications Current Medications Medication Drug Class(es) Dates Sig (Normalized) Sig (Original) cefdinir 300 mg oral capsule (1 source) Cephalosporin Antibacterial take 1 capsule by mouth twice daily cefdinir (OMNICEF) 300 MG capsule Take 300 mg by mouth 2 times daily 0 Active cholecalciferol 0.05 mg oral tablet (12 sources) Vitamin D Start: 09-12-2021 take 1 tablet by mouth once daily cholecalciferol (Vitamin D-3) 50 MCG (2000 UT) tablet Take 4,000 Units by mouth 1 (one) time each day at the same time 09/12/2021 Active take 1 capsule by mouth once jaden ly Vitamin D3 50 mcg (2,000 unit) capsule take 1 capsule by oral route daily clotrimazole 10 mg/ml topical cream (5 sources) Azole Antifungal Start: 03-26-2023 clotrimazole (Lotrimin) 1 % cream Indications: Candidiasis Apply topically 2 (two) times a day 35.4 g 03/26/2023 Active cyclobenzaprine hydrochloride 5 mg oral tablet (2 sources) Muscle Relaxant Start: 12-08-2023 End: 12-18-2023 cyclobenzaprine (Flexeril) 5 MG tablet Take 10 mg by mouth 12/08/2023 12/18/2023 Active [id number] 0.3 ml EPINEPHrine 1 mg/ml auto-injector (5 sources) alpha-Adrenergic Agonist, beta-Adrenergic Agonist, Catecholamine Start: 10-06-2023 EPINEPHrine (Epipen) 0.3 MG/0.3ML injection syringe Inject 0.3 mg under the skin 10/06/2023 Active esomeprazole 40 mg delayed release oral capsule (5 sources) Proton Pump Inhibitor take 1 capsule [...] 1 ml testosterone cypionate 200 mg/ml injection (8 sources) Androgen Start: 11-29-2023 testosterone cypionate (Depo-Testosterone) [...] Active traMADol hydrochloride 100 mg oral tablet (7 sources) Opioid Agonist Start: 12-19-2023 take 1 tablet by mouth once traMADol (Ultram) 100 MG tablet Indications: Osteoarthritis involving multiple joints on both sides of body Take 1 tablet (100 mg) by mouth every 12 (twelve) hours if needed for severe pain 60 tablet 12/19/2023 Active Start: 11-18-2023 End: 12-19-2023 take 1 tablet by mouth once traMADol (Ultram) 100 MG t ablet Indications: Osteoarthritis involving multiple joints on both sides of body Take 1 tablet (100 mg) by mouth every 12 (twelve) hours if needed for severe pain 60 tablet 11/18/2023 12/19/2023 Discontinued (Reorder) Start: 03-08-2023 take 1 tablet by benita [...] Translations: [Palpitations] Episodic Disorders of lipid metabolism (6 sources) Mixed hyperlipidemia; Translations: [Mixed hyperlipidemia] Onset: 3 08-06-2022 Chronic Disorders of teeth and jaw (6 sources) Arthralgia of temporomandibular joint, unspecified side Episodic Esophageal disorders (5 sources) Gastroesophageal reflux disease without esophagitis; Translations: [Gastro-esophageal reflux disease without esophagitis] Onset: 4 04-26-2023 Chronic Essential hypertension (20 sources) Essential (primary) hypertension; Translations: [Essential hypertension] Onset: 4 11-29-2023 Chronic Nutritional deficiencies (6 sources) Vitamin D deficiency; Translations: [Vitamin D deficiency, unspecified] Onset: 3 08-06-2022 Chronic Osteoarthritis (9 sources) Osteoarthritis of multiple joints ; Translations: [...] loss, unspecified ear Chronic Other endocrine disorders (14 sources) Male hypogonadism; Translations: [Testicular hypofunction] Onset: 3 Resolved: 3 07-12-2022 Chronic Other nervous system disorders (4 sources) Unable to stand up; Translations: [Other general symptoms and signs] 12-10-2023 Episodic Other non-traumatic joint disorders (7 sources) Arthropathy of spinal facet joint; Translations: [Spondylosis without myelopathy or radiculopathy, lumbosacral region] Onset: 4 12-10-2023 Chronic Other nutritional; endocrine; and metabolic disorders (8 sources) Body mass index 30+ - obesity; Translations: [Obesity, unspecified] Onset: 3 08-06-2022 Chronic Other nutritional; endocrine; and metabolic disorders (7 sources) Obesity, unspecified Onset: 4 Chronic Other upper respiratory disease (6 sources) Other voice and resonance disorders Episodic Other upper respiratory disease (6 sources) Other diseases of larynx Episodic Peripheral and visceral atherosclerosis (17 sources) Atherosclerosis of aorta; Translations: [Atherosclerosis of aorta] Onset: 4 04-26-2023 Chronic Spondylosis; intervertebral disc disorders; other back problems (5 sources) Spondylosis of thoracolumbar spine; Translations: [Spondylosis without myelopathy or radiculopathy, thoracolumbar region] Onset: 4 12-10-2023 Chronic Spondylosis; intervertebral disc disorders; other back problems (11 sources) Cervicalgia; Translations: [Sciatica, right side] Onset: Episodic Substance-related disorders (8 sources) Tobacco dependence syndrome; Translations: [Nicotine dependence, unspecified, uncomplicated] Onset: 3 08-06-2022 Chronic Past or Other Problems Problem Classification Problem Date Documented Date Episodic/Chronic Inflammatory conditions of male genital organs (7 sources) Orchitis; Translations: [Orchitis] Onset: 01-16-2012 01-16-2012 Episodic Malaise and fatigue (6 sources) Fatigue; Translations: [Other fatigue] Onset: 08-06-2022 08-06-2022 Episodic Other circulatory disease (6 sources) Elevated blood-pressure reading without diagnosis of [...] Kings Garcia MD 12/08/23 Final result Normal [facility] - Chemistry and C hemistry - challengeon 07-10-2023 Albumin [Mass/Vol] 4.70 g/dL Invalid Interpretation Code 3.7-5.0 [facility] Albumin/Globulin [Mass ratio] 1.4 {ratio} Invalid Interpretation Code 1.0-2.4 [facility] ALP [Catalytic activity/Vol] 67.0 U/L Invalid Interpretation Code 31-155 [facility] ALT [Catalytic activity/Vol] 28.0 U/L Invalid Interpretation Code 0-50 [facility] Anion gap [Moles/Vol] 17 mmol/L Invalid Interpretation Code 10-20 [facility] AST [Catalytic activity/Vol] 31.0 U/L Invalid Interpretation Code 0-40 [facility] Bilirubin [Mass/Vol] 0.50 mg/dL Invalid Interpretation Code 0.0-1.0 [facility] Calcium [Mass/Vol] 9.50 mg/dL Invalid Interpretation Code 8.5-10.8 [facility] Chloride [Moles/Vol] 102.0 mmol/L Invalid Interpretation Code 100-112 [facility] Cholesterol [Mass/Vol] 148.0 mg/dL Invalid Interpretation Code 0-200 [facility] Cholesterol in HDL [Mass/Vol] 37.0 mg/dL Invalid Interpretation Code 36-100 [facility] Cholesterol in LDL [Mass/Vol] 94.0 mg/dL Invalid Interpretation Code 0-130 [facility] Cholesterol in VLDL [Mass/Vol] 17.0 mg/dL Invalid Interpretation Code 0-39 [facility] Cholesterol.total/C holesterol in HDL [Mass ratio] 4 {ratio} Invalid Interpretation Code [facility] CO2 [Moles/Vol] 23.0 mmol/L Invalid Interpretation Code 23-30 [facility] Creatinine [Mass/Vol] 0.90 mg/dL Invalid Interpretation Code 0.5-1.5 [facility] Glucose [Mass/Vol] 78.0 mg/dL Invalid Interpretation Code 80-117 [facility] Potassium [Moles/Vol] 4.50 mmol/L Invalid Interpretation Code 3.5-5.3 [facility] Protein [Mass/Vol] 8.10 g/dL Invalid Interpretation Code 6.3-7.9 [facility] Sodium [Moles/Vol] 137.0 mmol/L Invalid Interpretation Code 135-148 [facility] Triglyceride [Mass/Vol] 86.0 mg/dL Invalid Interpretation Code 30-150 [facility] Urea nitrogen [Mass/Vol] 18.0 mg/dL Invalid Interpretation Code 7-25 [facility] Urea nitrogen/Creatinine [Mass ratio] 20 mg/mg Invalid Interpretation Code 6-20 [facility] No Panel Informationon 07-09 105 Invalid Interpretation Code [facility] VL Carotid Duplex Bilateralo n 06-24-2023 VL Carotid Duplex Bilateral Preliminary Technologist Report Bilateral carotid ultrasound study was performed. Please see the information that is listed below. Yarn Carrier: Shamika James LPN/HARSHAD Radiologist Report BILATERAL CAROTID DUPLEX ULTRASOUND STUDY [...] Electronically Signed in Other Vendor System) Normal [facility] No Panel Informationon 06-16 Tobacco smoking status Current Tobacco User Invalid Interpretation Code [facility] Coding Summaryon 05-21-2023 Coding Summary HTMLBase 64 AqlzersuALy1qOo+PGh lYWQ+PH7IFHLnC13lzX VkgA7zI9XCVMpYAkquB CVQXHwTXfMoszHuOX5k aXNjZXJu IC8+JX9gQEQjRscsgXC ru2B8bVG4O84mcd8oPU dleMA0FQQiIzPgonwcw 9mlaSa0CYpcLgdlKzLx EOWypV04FDD1jM26Pr7 2sHOpqEIay6axjRy4Uq XoSRZyNOE6cGfjMEwpl 4FaKXLqU22weTWno4K5 IGNvbGxhcHNlOyBlbXB 4pV0qDJsszcgny7melo lxNnw4ir07sEZom0G4k OS7T8XvsjF9UKPfkEKd EesyqIVWlE1yptgym6i riextNnCaSQQbESn5UP v1GWEyrAicFtIsIF32L BW7HGTqkyYtZ2GuSUQq oIrpGvY1a4N7Oc6RO1K KUalsV8PXGANCQDxmfC Q+CD38kl37T2JgIdyuK yg2CDBeHAX3bJY9jS5z PJLsQQizg6Y9wEW3K5H cadOxxr4tj5xnYYDgXZ sgA88ogRMoj8P6PIEdb OP2CTDzsIluAeOftZ92 Oyc+KRWlmGwdp5FvWfs lj0zyj6rskRe6YjqjED SbcrCnwPaeJJP1z0ZmH q5rQFUmlFW1yWF7iN9c WtYvRzV7LVbpG520MeB mvIJvTfcgN25jB3BtuI A+BKNkKxt9QMSgiXgzR K4fN9EkPQKcjqnqcVXq aCqsNV8aSPVmrqxqOFC gsN0oGGOfK9o0NcNsHg C7RKziT4TtONJbhouaR f18iO2oYqOuRfX0NImv T0CtpyF5KEWttSWjWOw wOQL2E34oi0L0HLGiPE AuFRL2pMZ1uC9iqNlsu jogbGVmdDsgdmVydGlj ZDmjJCjpE654DSJbiHj nPkNvZGluZyBEYXRlOi AgMDQvMDIvMjAyNDwvd GQ+YJPlXTG5gVnbNHMo dZJfAGhfAq9idOcmwGw pXS4kANZbkutsTPIfkC 1nJGMflRXqzOgtNM7oL CNagcroc903ZlBfEZH2 IMFcfLKhF6PfxU6uYsS wHBYqYQBqV3LbxMApOG ttS267GCiaYsQ1YEWzs rKaA1LnZOAguBzaIeV3 c2E8Xx7Cm6WwiajgQ0W czAUpGlZlSdhoFWu9O9 RkPjwvdHI+JH21ORFoA O93XEu1ERF6ePoqKLsq FINwB8XpdN2pXlIcYOM kZGRkOyc+PHRhYmxlIH dpZHRoPScxMDAlJyBzd WluBA2hVs1jKKRyPJVn nWaryNGlIgWja8tnGNT dVCmtBY1zcOfaG4WkkB L4UVKbs5r3Vz24D26tA 3JvdXA+FRAptAL1zMX6 dM6gIzEiToP6HWfkB11 2OlCftYOqErkie1njv5 xgaEq1BfP1YICpzeGfe YfqQDF7m0AlUq34Z56a IHdpZHRoPSIxNSUiIHZ wfSsawz8ghR0tTg3+PG UvvGH0cVG0sF0iVcSkX dZ8GTbeW013ZzNtaDAj Mctbp3plj1dinKo0OaE jMCRitmKhsIxcNYW5i4 RnVj35M7NciGhgr4GuF ym7ny53oVBpa8E2jFV8 R0GjJWPwsqbehIWimMq lLC9xMWRojpstYOQeqO 3pGTZdC5c7SaZiInX3Q ZoiZ7SoqoZ0PQXolQEt YWAisTCMvI9curvig6z phmiyHcWjUQWgGWi1ZQ g9OJPmsQtuLpDcOZT7M uA4PXC8jVRnxM4wnOmh svhebQ2qMfe+YFR2eHU ucWHYAS8pNmhupFD+PH SjCQI2kEheHWoxGQGjw T5iCJQzQ9f2DxXaIyS0 WExyX4NtdiD7ILNjnIA gZDWdrIBFzJ8owjbpl1 bvolayEfSkCFYvJYm4V Vt3KOUggQmmArBkRUW6 IkH1TNC7lCXqyI9uoQx tiucktC2qCvs+QmlydG euEOL7YIj3L6CsVzi4J JGrcCgvWX5ohIPmZAfs Ea7geTbdrBvkJM2kJBE padizl945VeXav5dvAF UcpRFgVRvfLYE2K59sc 5E4JNYzUYIyZFK7vHC6 bQ1jqEgbtwuxzCAwbHs gdmVydGljYWwtYWxpZ2 58UDQuiXobEeInGZo0R 9QiUlt4RNYjyScjVY7g hIKmAEzoHv9nwQqfcXq hPE5bFEVeythob295Ai Fqk8jcPYCgqXJcQIxtX SN0S71bw2Q2LYLfUBCs BXV3pLY2oE5piSxtbth gbGVmdDsgdmVydGljYW rsYUtoH938YGInjFjmO gXypXh0N2NxRzs7NHWm cBinIN5gwMIhTMnaFf8 jsWzpiCplQA3mNHDdtg lqc045YhFaz8mcNAFvg DMaMSilHXU0X91wi4G2 RHBtXUVhZDC6lLH9oR9 hbGlnbjogbGVmdDsgdm OrwBpaBKujFVtaZ979Z HRvcDsnPlBhdGllbnQg CXlcAYu6V3TeHhzhxZE +TT09GJPwRY80jOBynR Bej6pyjHb3DpUjXITkP EK8cDprFPxga1RwOQEz P79geAUvt9R3YOFkvFf hjHWqDbVqdHB9nO0fAH xwqshwo0xfmixgXiqcv 4kioe26yX14F95oXDyb ZHRoPSIzMCUiIHZhbGl ata6aaO1yKe8+PGNvbC O9tDN5iE3hORGiDuP0H VviA404UsZhtOIwCmau v4opl2puvJy7TrQ7YYH otdGozAjkSMP4w4JeRi 62Z32oUAbuISGoAUQzH BMwYQRezQiadb3daO2m Ii8+ZIJmmHV0nVV8pA1 rVeXwIpY4HQnfM832Kg AxgMCoXruzH44lS4Rhk XA+KSVhYsy7HDJumRox CA2riOSwYKqiPs5gFAX 4LrRtVfTjUHqfY9PaCJ XxjqosurzrpEW2DPEsT PShtZ04Ma2dnTqpUMIp bHVNhF1kkapxu6zlhqc qEuPsFMXgFDs7NDe5NR QfuIypKvXsIKN2QyH9N NE8uIEqdN1hrJakdcvw sC6eO8UuHAVanutlTs9 2xZ3aWlBnEvH7GYprMz c+SEVSUklORywgSkFNR KJtItWCHtwEOI46D5Hy Opo5RFWwwScqGZ4xaNS zGOseSx6leRvftXdgXH 1eDUEqqextNVOslS9jI TZuqRHtoBwsJJ8kTQMn wmlfr085UeNeUQL0GSG piKOxF9OqcM0vIzLuPT ZxQIZaB5JtfQLlPTjyL 453ESauQrG1UINckrDq L9WdUOVwzOykIwG8a5D 5Cg9eSV8lVY5iVVu5DZ 59IK38nIWca3M0wRR0I 1LpGQGenrbgalyafQR7 HDOlWPHrwM59gJItXHb iKb8dd8G3m352XVMgXF EsvQ26Jp0gbGdlNBQrb ZHUhS2zdwmjf5evxlqi MwYrBBGqELn5STw9USB djJdnAkMcNLX2TvO7LN N2xETeiE4sdGwgxkoob G9wOyc+NDcgWWVhcnM8 N1KqYcf9ODGtdFedTN8 ywLChVOgjRm8fwGxheA ebOI3dDUZradnwYQCfq O2bGNUwuWNmjVutWW4f YJQkfvbks457KyHeUJA 9QJNodVEwZ4WmxJ3rXa WzDCQsJROdE3YtvDVfB KwnL783HJjlAwC5NEWo bwGsS1VoWGWrcDniTsN 2n8I2Eq1FAXdNEP26RA 30fYKqq6H0aLF3N8TwM YMjxpytogtboXM4LECd ZCKztK75cWHgBVheVb7 ea9A8h764ZQEdFPWanZ 56Ci3daKbzDJSnfXJCl M1zsamjt5vlpolwOgUw LNYxUJl6PCp3SIUpvOn yVvVhGFK2KiL1JPB9yO HdpN1ziSfchhzrbX7vR yc+M3J7X9GiDsphgFW+ VH66DQCtAJ03fVHjoAE ti9gbsJq9FlIkFYLxQN J9pNlpSSybd3VbDCClF 64mxCBlz8M3YLFgmEip sPQpHkKmmNH1qR4gETm prshla6xgkbfyLuyzu2 mimn21oP73T27bKMlaK HRoPSIzMCUiIHZhbGln xj3mhH9vKw3+PGNvbCB 7sPM4kF6hLiDcMtD4AJ xlD902XzXkqVMnYsryu 9ibj0pzcCb3WuOcLHVs riBmxPhoBAB3i1HqFt0 6X78hUKxjEZEmVVIqVR IkFCRvhZvpfs2lqB1pT i8+QA8vx8xzcf56mD86 dHI+SZApNOZ1fWfoDNx xDAEpmO5vJSmgCmX8PW StPtCecI87cDRfIDbzP v7bfSspdAowYU9cBFOp mzybb220VtEcu9meIKZ kuVFxKSldMZL7B38yf7 O4OCVxWRQfKBB1lAY4i P1jjJvwjpejnYGtdXvz gqBooTcnXAqfXRmrK62 7KRRwwGmxTpAjoMIjH1 zzzmFOKS7rCkxveGP+P SFuYFT8oNdrQMnvYSTw jC1iBDFfP7d8PjBcItD 9XOfeW9IfqwC2RMStlU BsWGLeoKEMkK7wykazl 5xvbjgwGjLwTWAgSIr4 XGi5DXOyrTnsJxEeMDA 5LlI5GEQ8nFPoeI5aeA lyehztxY6uJjy+RklOO jwvdGQ+GUKmRTG2sHfn WLtuYIYepA8nNDZmJ4p 4PgUkWzW4ZEcqF0Feom J4WNAugGYnNUHseOCNd J8uytgkj9trrmpvJtMu VVHbZFx2YNi5LNSvvNa bZcKuAFG5NeJ3UFO6tQ BdwL0qjPyhghqduT8eG yc+TVJOOjwvdGQ+PHRk FDH1zPgtJWmfEUWmcU7 hYIDeB8s9BbVgIgV1KB sfJ5PfqoL0YMIqdSMlP ZTiiSKMaW8nbbmfh4lg wwvlLcDnWOQqNZo8XBh 9YNTyoAvhXjPzVZG8Qr Q7HCC1gRVskH9xdXsdp dtltM2pRhe+ILP0JJB5 AY82NO94W9GdAkenrYN ibGU+PHRhYmxlIHdpZH RoPScxMDAlJyBzdHlsZ H2gRp8eKPXqZHZdbMdt cHN (more content not included)... [facility] Provider Orderson 05-14-2023 Provider Orders [id number] [facility] Sperm Count Post Vason 05-13 Post Vas Screen None [facility] Comment on above: Performed By: #### 1 [id number] #### [facility] (DEFAULT) [address] [place] [address] Semen WBC >20 Normal [facility] Comment on above: Performed By: #### 1 [id number] #### [facility] (DEFAULT) [address] [place] [address] Audiology Office/Clinic Note on 04-25-2023 Audiology Office/Clinic [...] by Gely Rea 04/25/23 12:05 EST Normal [facility] Otolaryngology Office/Clinic Noteon 04-25-2023 Otolaryngology Office/Clinic Note [...] by Weston Montiel MD 04/25/23 10:15 EST [facility] Coding Summaryon 05-24-2022 Coding Summary [employer]Base 64 SxhelhjiTYl6aVp+PGh lYWQ+XB5ERFCqL45unO NdbR2QF7pAXC2ORUWCG OZBUL1HDM7nxDQ5KWqw N2WskiMe YyjgwVAkHI41KHu7MNR 3xTjeGDeotP5qdGKyQ3 p0XiMlKZ00vX48PRcqS HZgMwM5NoUlyagqvDEl Z2liIxQflYUaIgx+PHR hYmxlIHdpZHRoPScxMD EwJsIyiZxfOB4bSr8fS GVyLWNvbGxhcHNlOiBj v5ddMUCpLUuhHM1bxNg pJ8NxzKH9YJEpg7z6Pc 48dHI+FKCzVNG8qLtbY Lsol343RkXjf3xxNUJ0 gBNcHIplGDQ9T39lg3E 3BZLyYZVfMVE5aKV8yG 5ceEcrgyvcU9JhcDBdV jG7MMV1mEAnvE1fqHra eljutC4oTfd+I71FWV2 RQEKOAR5HCet0U8OaRe wvdHI+AZ07COUlNE20y GYwzCWhq5zrhQt6KlYx ORWjJCM0nXubYNjpf6I tFEQsT79ugLBbo1M4YZ XqsVygkMIaCqRryLY9u L2tXBmukdkgz0twypgt Ybkrl5fyqo80mP50Q75 vAZwzRHJxMWH7BAOdKV GesIlfms5wkR3gNl2+I Zqwb3muj1tojFl4InKn YCBdrySicJudKAA2p2Q rVb00S3OawQprs4ZxGx n4co28uKUbv5N8rCI5Z WlmYPSczZ0oSYszGyF4 OEViXvTgrA39nSFuJWf hWf5eeAwktUzmVG8vVC EoyvdsDCThtJ1aTLQia INnwBouEM7fPTRjxsgb j558NyNkNYS8UXIrwNQ pJ4YuhA4sHaEmTMNdCG LxE4AinOVuRDpfL573O IbvXlG8WUWsdjEdZ4Ur LGDalAisRqW4p2S7Vv0 Cq5CdoojiDUO1IBdxTB L7KxO4DuSmXzN9O6FzB so7CXPaqWsuXG6lE6Xl MSXaeauoptkdtOC0XRH qDKFduI77fXLzCWiuBh 4cp9J0b721XZUuPZRrh K97Sd9hkAkiUHRfsEFJ hS7goxrws7tnjwilBgM tWTSdAWm0IFe3XVFdlQ olRtRvLYE9TgU8HIQ8m LHmdC2fzFrobkgbkP8t Oyc+G07mkC5hWIK5GIJ 7xrlqUNXqkzJhXK14EY 00L3BrYliqiUGdqQN+P FTjzvJkbUpeTT6sCcDa g6aum6GzCHmkM2XcXCI vSJsrXyo6OCUnHBT9mU T0zB0xQBAwPQxsk1F6f BR4W4YwqrXktl2jw4zg JWXvGLbnZ93daNRru2A 3ILDilYB9JVBhvVobJv HhbP02Ntr+PGNvbGdyb 5SuGptzn7ijf1rufHd6 IjMwJSIgdmFsaWduPSJ 7h4LzTy77C65lFTjeIS RoPSIxNSUiIHZhbGlnb d7mvS0zJo8+PGNvbCB3 oNI4mY1iMTCpDpZ9QFz yY485OhJzuPKcShmjs6 oew8dpcFc6LmHaAJSvq pHiyXnmMJQ3b0BhBo49 K56cKShgXXCvAATaTXF cWZGcjRoiip4kyH7aLr 8+MC7ko4wdbr65gB39w HI+UXVuOWS2eIjqLWvj UZTvnL9bZEugJsK3ZYI pWpCqsU32hFEoKGtaCu 1kbSrgnNzcMV4xTBZah qllf692AgXlk9klSBGp bTVvKXxcDVW2G54sk5T 9AGQfSEZfMRA1mQO6uT 1hbGlnbjogbGVmdDsgd uBnxHsbWPjkMVxvL014 IHRvcDsnPlBhdGllbnQ uLdUnAWm2L9BhOvo8BO YliGzpVH4poUPkTOyvD q3iaMgtrHopRJ4qVUWd tjyjh406BkWac3mrZWD fnLGtVOrxIBO0K83sw9 C8IQDtOQGyQZF9gTZ9o O4keWurwrtcbEMnlOwp fkEawSiyKGstLJerG90 6IHRvcDsnPkJpcnRoIE NqeWS7JW82QG85yYJst 5L3rQR3I6HiJILapdvo xjnovDW3NTVfLAEdzA3 2Bu1ewAvdWt8eSOHcER Y5HNEefHRpI0YalU2cH uMdMZNzOYPdO0JyvXYz YBqrA456IJbuHwZ0DYX ldmDtU8SfOXWvaAhxLr J8r0P7Kq8VW4C7VP17T F74uGMyr6R4cPA2B9Eu CCLfsdvdurcqvZZ6MTZ wAYSunL08Kw6waPjoLe 5qZUIsWNX5ALXvtVHoH 5YhcB3wLtGrORQwSKHi T1SmhWDiSNezW243HDr xJlA5UOPoytRlA5EaEG KhtQsuXjD7i2Q2Pg1AD Sl3OO91SO17yGWex2Y9 tXP1L0TtPVWkolqaazv jrQU2XRTsYZWkoJ17Zk 3mdDriZb9wHHTaIUH4B TByqAPxS2OxlH1rLdMk KKAtEWDcE3SteLPlHIx gC169KDrfTsB4MXGxvu HjJ4AoULFezKxmDyK0r 7G2Nk8MOISxJS85SNH0 lXV1WY73ZO07L7GnBje vdGFibGU+PHRhYmxlIH dpZHRoPScxMDAlJyBzd MpoLT7eCa4hNOGqQHIj eZnutTYtKsXgx4brXEP kRDskCF2ilOgvO3SziH S7AITjy5g6Ma96H67nU 3JvdXA+CIJitAR3mVF9 bT1nBuJzReB8UOlyB32 7GtMhsXObXwhsq7azp7 lhhHd4KeQ5LZBvoyNpd SndICX9b0RyPn29K99u IHdpZHRoPSIxNSUiIHZ pzApzwf5yaD0qYs7+PG SycWC9qRE9gD9fIoAlH oF5NYmkY076QlOchJBd Wovgx7nuz0wkxWq6SmG eRFIulqFabBglUOW1o4 YyNv03H6WhuGeko1KoV gh0xr57yEZgr9A0sUH0 M4AyBIAjfvjmjNKxdCr iSY4oWJHyftruLWUllW 3qMFCyC6p9SiAqCsO7L TawG9KnprS2LQHqmMIl PHdjGLA4F85ja1U0PWV fSVOdRVX5nFJ7lG8viA lnbjogbGVmdDsgdmVyd VszBBjiOMgrM434VVPx yKohWLUwzZ1gWQWxeFT uyCibMN6wXDZwcxwcPa hFUlJJTkcsIEpBTUVTI DSWDS5XFFlAPT47UF47 gJKpo9F3tYK6J1TbTYL nicmmplwiwLA2PEFsKD AhxE75gAWwDEikDu6fa 7M8f389DWJdSHHxxJ88 Vo5lgVgsTVWjhJUIrQ6 rfique6tiletsTnFaKF NrHSc1MId7EVHywXgtQ jCaFOU4IuX2TXA0kWRx bB1cjMhcaeddxD0wCsn +FUYjMeVcQFi3SqyxvL Q+OTNuYXK9hUfuDBpfT OYwgN0jOBPeM5z5SgUy DbL8AAerF3FtSBAvchy pRb20cX6uXcEtMnU7RI jjZ8FvhfL5SHMdrWIgB NtkPKM0D24jt8I2SOHj DESrAVF4sIY7oK1qrWg nbjogbGVmdDsgdmVydG vzRPgpODbbV537TMXnq LtuQfQ4WWjnXCQeEK62 WN63cWSvn6Z8wEO5N4U iVNYbbefkrjwyvWI7FG GnPHZcwP23pJScCZtlY z0oa0S5p780HKRtWOHt qX12Yp4wiRzdMPXfdSP BoL5swywwe8rewuivCu WpDRRoCZn1RRj2ILAue KbiUrHmTIR5BcT9UMJ2 aISvqK8mgDdoftwuxK5 wOyc+TUFMRTwvdGQ+PH TaHRP4lWjbQXjvHNZjv D2pCSPxX3g9XuDrTuP6 RGnhG8EoGOTvnssdBa6 7jP5yTtUbNkZ1FQuyU3 GccbG5YTZqvEXgFSbgG RK0K51pj5R7LGTyQVXq BJM0iXE7uA1dbIanmfd gbGVmdDsgdmVydGljYW tqASnaL147PAAkgHzvC x5GFT36VG81F4IkUwem dGFibGU+PHRhYmxlIHd pZHRoPScxMDAlJyBzdH vpBF6bTl6bJJDmMVBrq CfrkIHiHoFcw3nuDXNq UVvxHU0plDoqR6KezXG 8NEHkf6p5Hc61W68rD2 JvdXA+INYviQO3qXM8h Z9vOaKvWzE9UEgbG141 RaFveNAaEgjyn2hff8g ljMv2UoDfHYMqwmAluG tpZLX4w7QyQd52H16zY HdpZHRoPSIyMCUiIHZh oQacwj7ssI8fCt8+PGN mpQG8sEU0kO1cPcWgLc K6PUgxJ378TuUazANwI gjhI17dP9WioRC+PHRy Ort7CZKewDcyRH0jiFV pEAfaWw2zKUJ1MsAvBm TrAGwgU0SaCMTxwkmfh nqmqKR9OOOsCCQwgB10 Kf7dlZqeMp2aGNIaSVV 0EJBefGQuB7YotE0yAe HdZZZwDVCbW2VrjNZuK PhkM537XJxzXsJ8RHMy xlNmJ0RuAGYjdZqrHxE 5l0J6Pv7RmGznqKOwWL 2rFhTvVOn9J0EcIwn5V VMcmMwsQE0zgSUrXTyt Yx6xbIumuUydML7tAAS ieprbr118JdYae7nkPW WmdQSzQUwiDWW9Q27ek 6E7AUEaWPKvAXC8nJG5 yS2htFntmvrgoADonJq gdmVydGljYWwtYWxpZ2 02NDNfgUfeFsFUTze3A 1KnVhn0IBJgySilSP5j fAToWVliQk1hlOcemNe eWB0sFNXvbcvss055Bo Uan0aiFUUjbKApUDejX UB3R02xg0X5JCSgCLEw NLR2zPS6dO2lrZgejzw gbGVmdDsgdmVydGljYW ahXUuaO237EJMtaDvgX l9KVxq9W8HlNdf2XROu nAouMX4vlFQnVGzkOa8 qhFllhXsrBX5uKUSxfn vwo170KfVgu3hiERVug OCoLYgvOQC1G28lf7N6 AQKhGFHxLRM2fVQ7zT2 hbGlnbjogbGVmdDsgdm GjxYjzEMxgKYbsG398D HRvcDsnPlBheWVyOjwv dGQ+LP38jw20G4PeNbd bOpb5PPSjZDT2mKD4sA 4nYOBsKIkjn8M9mZD0T 7VlhzUlnc2xt2rlHSTc ZTo (more content not included)... Normal [facility] Provider Orderson 05-23-2022 Provider Orders [id number] [email or web address] [facility] Sperm Count Post Vason 05-21 Motility Semen NonMotile Sperm Normal [facility] Comment on above: Performed By: #### 1 [id number] #### [facility] (DEFAULT) [address] [place] [address] Post Vas Screen None Normal [facility] Comment on above: Result Comment: CONC ENTRATION TECHNIQUE PERFORMED. Performed By: #### 1 [id number] #### [facility] (DEFAULT) [address] [place] [address] Semen WBC >20 [facility] Comment on above: Performed By: #### 1 [id number] #### [facility] (DEFAULT) [address] [place] [id number] Drug screen multi urineon Amphetamine Screen, Ur Negative NEGATIVE [facility] [employer] Comment on above: (Positive cutoff 1000 ng/mL) Barbiturate Screen, Ur Negative NEGATIVE [email or web address] Comment on above: (Positive cutoff 200 ng/mL) Benzodiazepine Screen, Urine Negative NEGATIVE [email or web address] Comment on above: (Positive cutoff 200 ng/mL) Buprenorphine Urine Negative NEGATIVE [facility] [employer] Comment on above: (Positive cutoff 5 ng/ml) Cannabinoid Scrn, Ur Negative NEGATIVE [email or web address] Comment on above: (Positive cutoff 50 [...] 300 ng/mL) Oxycodone Screen, Ur Negative NEGATIVE [facility] Comment on above: (Positive cutoff 100 ng/mL) Phencyclidine, Urine Negative NEGATIVE [facility] Comment on above: (Positive cutoff 25 ng/mL) [facility] Vital Signs Date Time Vital Sign Value Performing Clinician Facility 11-29-2023 08:08-0400 Body height 188 cm Yumi STUART Work Phone: [facility] 11-29-2023 08:08-0400 Body mass index (BMI) [Ratio] 32.74 kg/m2 Yumi Carrasco PA Work Phone: [facility] 11-29-2023 08:08-0400 Body weight 115.67 kg Yumi Carrasco PA Work Phone: [facility] 11-29-2023 08:08-0400 Diastolic blood pressure 92 mm[Hg] Yumi Carrasco PA Work Phone: [facility] 11-29-2023 08:08-0400 Heart rate 86 /min Yumi Carrasco PA Work Phone: [facility] 11-29-2023 08:08-0400 SaO2% (BldA) [Mass fraction] 99 % Yumi Carrasco PA Work Phone: [facility] 11-29-2023 08:08-0400 Systolic blood pressure 142 mm[Hg] Yumi Carrasco PA Work Phone: [facility] 07-25-2023 13:06-0400 Body height 185.42 cm Arron Ramirez [facility] 07-25-2023 13:06-0400 Body mass index (BMI) [Ratio] 34.43 kg/m2 Arron Ramirez [facility] 07-25-2023 13:06-0400 Body surface area Derived from formula 2.47 m2 Arron Ramirez [facility] 07-25-2023 13:06-0400 Body weight 118.39 kg Arron Ramirez [facility] 07-25-2023 13:06-0400 Diastolic blood pressure 96 mm[Hg] Arron Ramirez [facility] 07-25-2023 13:06-0400 Heart rate 80 /min Arron Ashley [facility] 07-25-2023 13:06-0400 Systolic blood pressure 140 mm[Hg] Arron Ashley [facility] 06-17-2023 16:21-0400 Body height 185.42 cm Arron Ashley [facility] 06-17-2023 16:21-0400 Body mass index (BMI) [Ratio] 35.75 kg/m2 Arron Ashley [facility] 06-17-2023 16:21-0400 Body surface area Derived from formula 2.52 m2 Arron Ramirez [facility] QRGL [facility] 06-17-2023 16:21-0400 Body weight 122.93 kg Arron Ashley [facility] 06-17-2023 16:21-0400 Diastolic blood pressure 86 mm[Hg] Arron Ashley [facility] 06-17-2023 16:21-0400 Diastolic blood pressure 92 mm[Hg] Arron Ashley [facility] 06-17-2023 16:21-0400 Heart rate 92 /min Arron Ashley [facility] 06-17-2023 16:21-0400 Systolic blood pressure 152 mm[Hg] Arron Ramirez [employer] 06-17-2023 16:21-0400 Systolic blood pressure 148 mm[Hg] Arron Ramirez [employer] 05-16-2022 11:19-0400 Body temperature 97.11 [degF] [facility] 05-16-2022 11:19-0400 Diastolic blood pressure 89 mm[Hg] [employer] 05-16-2022 11:19-0400 Heart rate 98 /min [employer] 05-16-2022 11:19-0400 Respiratory rate 18 /min ROKT 05-16-2022 11:19-0400 SaO2% (BldA) [Mass fraction] 98 % [facility] [employer] 05-16-2022 11:19-0400 Systolic blood pressure 189 mm[Hg] [employer] Encounters Encounter Date Encounter Type Care Provider Facility Start: 12-19-2023 End: 12-19-2023 Refill Rama Espana MD Work Phone: [facility] Comment on above: Osteoarthritis invol ving multiple joints on both sides of body Start: 12-10-2023 End: 12-10-2023 ambulatory YUMI CARRASCO Not Available Start: 12-10-2023 End: 12-10-2023 Phys/qhp telephone evaluation 5-10 min Yumi Carrasco PA Work Phone: [facility] Comment on above: Arthropathy of lumbo sacral facet joint (Primary Dx); Spondylosis of thoracolumbar spine; Unable to stand up; Weakness of extremity Start: 12-08-2023 End: 12-08-2023 Emergency department patient visit [facility] Start: 11-29-2023 End: 11-29-2023 ambulatory YUMI [...] 10-06-2023 End: 10-06-2023 Emergency department patient visit [facility] Start: 07-25-2023 Office outpatient vi sit 15 minutes Pam Kruger Other [facility] Start: 07-22-2023 End: 07-22-2023 ambulatory YUMI CARRASCO Not Available Start: 07-19-2023 Split Srvc Arron Ramirez Other [facility] Start: 07-10-2023 Lab Arron Ramirez Other [facility] Start: 07-10-2023 End: 07-10-2023 Split Arron Ramirez Other [email or web address] Start: 06-24-2023 End: 06-25-2023 ambulatory Yumi Carrasco PA-C Facility:[facility] Start: 06-17-2023 Office outpatient ne w 45 minutes Pam Kruger Other [facility] Start: 05-14-2023 End: 05-15-2023 ambulatory Yumi Carrasco Facility:[facility] Start: 04-26-2023 End: 04-26-2023 ambulatory YUMI CARRASCO Not Available Start: 04-25-2023 End: 04-26-2023 ambulatory Yumi Carrasco PA-C Facility[facility] Start: 03-26-2023 End: 03-26-2023 ambulatory YUMI CARRASCO Not Available Start: 03-25-2023 Chart abstracting Yumi Tracy er PA Work Phone: [facility] Start: 02-06-2023 End: 02-06-2023 ambulatory YUMI CARRASCO Not Available Start: 01-14-2023 End: 01-14-2023 ambulatory YUMI CARRASCO Not Available Start: 05-21-2022 End: 05-22-2022 ambulatory Ramesh Taylor Facility:[facility] Start: 05-16-2022 End: 05-16-2022 Emergency department patient visit [facility] ED Comment on above: Palpitations (Primar y Dx) Procedures Date Procedure Procedure Detail Performing Clinician Start: 07-19-2023 Echocardiography for determining pericardial effusion Arron Ramirez Start: 07-10-2023 Comprehensive metabolic panel Arron Eubanks r Start: 07-10-2023 Electrocardiogram with exercise test Arron [...] Visit [facility] [address] [facility] [address] [place] [id number] Yumi Carrasco PA [address] [facility] [address] [place] [address] [facility] Start: 12-10-2023 End: 12-09-2024 MR Lumbar spine WO contrast MR lumbar spine wo contrast Imaging High Priority Arthropathy of lumbosacral facet joint Spondylosis of thoracolumbar spine Unable to stand up Weakness of extremity Expected: 12/10/2023, Expires: 12/09/2024 [facility] Work Phone: Comment on above: Expected: 12/10/2023 , Expires: 12/09/2024 Start: 07-10-2023 Comprehensive metabo lic panel CMP (comprehensive metabolic panel) [employer] Start: 07-10-2023 Lipid panel Lipid panel [employer] Start: 06-17-2023 Cv strs tst xers&/or rx cont ecg w/si&r ETT (exercise stress test) [employer] Start: 06-17-2023 Duplex scan extracra nial art compl bi study Carotid duplex [employer] Start: 06-17-2023 Ecg routine ecg w/le ast 12 lds w/i&r EKG (electrocardiogram) [employer] Start: 06-17-2023 Echo tthrc r-t 2d w/wom-mode compl spec&colr d ECHO COMPLETE [employer] Start: 03-26-2023 End: 03-26-2023 Patient encounter procedure 03/26/2023 8:30 AM EST Office Visit [facility] [address] [facility] [address] [place] [address] Yumi Carrasco PA [address] [facility] [address] [place] [address] [facility] Start: 09-18-2021 Influenza vaccination Flu vaccine (# 1) [email or web address] Start: 06-17-2020 Screening for malign ant neoplasm of colon [email or web address] Start: 2015 Lipid panel Lipids [facility] Start: 06-17-1994 DTaP/Tdap/Td vaccine (1 - Tdap) DTaP/Tdap/Td vaccine (1 - Tdap) [email or web address] Start: 06-17-1993 Hepatitis C screening Hepatitis C sc reen [email or web address] Start: 06-17-1990 HIV screening HIV screen [facility] [email or web address] Start: 1987 Depression Screen Depression Screen [email or web address] Start: 06-17-1981 Pneumococcal 0-64 ye ars Vaccine (1 - PCV) Pneumococcal 0-64 years Vaccine (1 - PCV) [facility] Start: 1975 COVID-19 Vaccine (#1) COVID-19 Vacci ne (#1) [email or web address] Start: 1975 Screening for malign ant neoplasm of colon [facility] EKG 12 Lead EKG 12 Lead ECG STAT 05/16/2022 11:46 AM EDT FANY [employer] Work Phone: Payers Date Payer Category Payer Self-pay 2022 Private Health Insurance SHILO ARORA [id number] 2022 Unknown [id number]. [id number] 2022 Unknown [id number] 2021 Unknown [id number] [id number]. [id number] 1975 Unknown [id number] 2.16.840.1.016383.3.579. 2.718 1975 Unknown [id number] 2.16840.1.511321.3.579. 2.718 1975 Unknown [id number] 2.16.840.1.676157.3.579. 2.196 1975 Unknown [id number] 2.16.840.1.257124.3.579. 2.196 1975 Unknown [id number] 2.16.840.1.110679.3.579. 2.196 1975 Unknown [id number] 2.16.840.1.151297.3.579. 2.173 1975 Unknown [id number] 2.16.840.1.591551.3.579. 2.173 1975 Unknown [id number] 2.16.840.1.965895.3.579. 2.9 1975 Unknown [id number] 2.16.840.1.150114.3.579. 2.9 1975 Unknown [id number] 2.16.840.1.521091.3.579. 2.9 1975 Unknown [id number] 2.16.840.1.205235.3.579. 2.9 1975 Unknown [id number] 2.16.840.1.998436.3.579. 2.9 1975 Unknown [id number] 2.16.840.1.637565.3.579. 2.9 1975 Unknown [id number] 2.16.840.1.295889.3.579. 2.1259 Unknown [id number] 2.16.840.1.744298.3.441 Social History Date Type Detail Facility Start: 05-01-2012 [facility] History of tobacco use Cigarette Smoker [facility] [employer] Phone: Start: 05-01-2012 End: 12-10-2023 Cigarettes smoked current (pack per day) - Reported 0.5 [employer] Phone: Start: 05-01-2012 Tobacco use and exposure Smokeless tobacco non-user [employer] Phone: Start: 05-16-2022 Alcohol intake Current non-dr breast puller of alcohol (finding) [employer] Phone: Start: 1975 Sex Assigned At Not on file [facility] [employer] Phone: Start: 05-06-2022 End: 05-16-2022 Exposure to SARS-CoV-2 (event) Not sure [employer] Work Phone: Start: 01-14-2023 Tobacco smoking stat us NHIS Occasional tobacco smoker [facility] Start: 01-14-2023 End: 12-10-2023 Alcohol intake Ex-drinker (finding) [facility] Start: 01-14-2023 End: 12-10-2023 Tobacco use panel [facility] Start: 08-13-2022 Tobacco Comment 6-10 cigarettes/day. [facility] Start: *Tobacco [facility] Start: Alcohol [facility] Start: Denies substance abuse [facility] Telephone encounter Note 12-19-2023 Telephone Encounter - NARCISO Forrest - 12/19/2023 9:08 AM EDT Note Date & Type Note Facility 12-19-2023 Telephone encount er Note OARRS reviewed, Rx sent into patient's pharmacy. [facility] Note 12-19-2023 Telephone Encounter - NARCISO Forrest - 12/19/2023 9:08 AM EDTTelephone Encounter - Myah Head - 12/19/2023 8:55 AM EDT Note Date & Type Note Facility 12-19-2023 Miscellaneous Notes Formattin g of this note might be different from the original. OARRS reviewed, Rx sent into patient's pharmacy. traMADol (Ultram) 100 MG tablet [facility] [place] documented in this encounter [facility] Telephone encounter Note 12-19-2023 Telephone Encounter - Myah Head - 12/19/2023 8:55 AM EDT Note Date & Type Note Facility 12-19-2023 Telephone encount er Note traMADol (Ultram) 100 MG tablet [place] [facility] [place] [facility] History of Present illness Narrative 12-10-2023 Yumi Carrasco, NARCISO - 12/10/2023 11:30 AM EDT Note Date & Type Note Facility 12-10-2023 History of Presen t illness Narrative Images from the original note were not included. Subjective Patient ID: Bahman Rivas is a 48 y.o. male who presents for [facility]. Bahman is follow up from [facility]. Went via EMS to hospital because he [...] mouth Daily cholecalciferol (Vitamin D-3) 50 MCG (2000 UT) [...] deficiency Past Surgical History: Procedure Laterality Date SD KNEE SCOPE,DIAGNOSTIC Bilateral knee scope SHOULDER ARTHROSCOPY [...] like to have the MRI done at [facility]. Today's visit was a visit conducted [...] States he did follow up with the [employer]airer and was told everything was good. 10/06/2023 [...] deficiency Past Surgical History: Procedure Laterality Date SD KNEE SCOPE,DIAGNOSTIC Bilateral knee scope SHOULDER ARTHROSCOPY [...] request records from Dr. Arron Ramirez, the [facility] [facility] Repairer he previously saw at [facility] so we can get the testing results. [...] Medication Follow Up. documented in this encounter [facility] Discharge instructions 05-16-2022 Discharge InstructionsAttachments Note Date & Type Note Facility 05-16-2022 Hospital Discharg e instructions Jim Ayala PA-C - 05/16/2022 12:34 PM EDT Follow-up with primary care doctor 7 to 10 days for reevaluation. Promptly return to emergency department for new, changing, worsening of symptoms or other concerns. The following attachments cannot be sent through Care Everywhere.Palpitations (Kyrgyz)documented in this encounter [employer] Work Phone: Evaluation note Note Date & Type Note Facility Evaluation note Diagnosis Palpitations- Primary documented in this encounter [employer] Phone: Evaluation note Note Date & Type [...] extremity documented in this encounter [facility] Evaluation note Note Date & Type Note Facility Evaluation note Diagnosis Osteoarthritis involving multiple joints on both sides of body documented in this encounter [facility] Summary [...] when package was opened. Reason Comments Hypertension Reason Onset Date Comments Med Refill 12/19/2023 Care Teams (unrecognized sec tion and content) Reporting Lead Relationship Specialty Start Date End Date Rama Espana MD [address] [facility] [address] [place] [address] PCP - General Family Medicine 08/06/22 Reporting Lead Relationship Specialty Start Date End Date Rama Espana MD [address] [place] [address] [place] [address] PCP - General Family Medicine 08/06/22 Reporting Lead Relationship Specialty Start Date End Date Rama Espana MD [address] [place] [address] [place] [address] PCP - General Family Medicine 08/06/22 Reporting Lead Relationship Specialty Start Date End Date Rama Espana MD [address] [facility] [address] [place] [address] PCP - General Family Medicine 08/06/22 (unrecognized sect ion and content) No Status Records FoundNo Status Records FoundNo Status Records FoundNo Status Records Found INFORMATION SOURCE (unrecogn ized section and content) DATE CREATED AUTHOR 05/22/2023 [facility] DATE CREATED AUTHOR AUTHOR'S ORGANIZ ATION 06/26/2023 [facility] DATE CREATED AUTHOR AUTHOR'S ORGANIZ ATION 12/10/2023 [facility] DATE CREATED AUTHOR AUTHOR'S ORGANIZ ATION 12/12/2023 [facility] Specialists [facility] FOR RECORDS PERTAINING TO PATIENTS WHO ARE [...] BE BASED ON THE PRIMARY CLINICAL RECORDS. [employer] provides no warranty or guarantee of the accuracy or completeness of information in this document.
--- NOTE | 2024-01-03 08:19 | XR_ITS ---
The [address] [address] Patient Name: NATHANIEL LOMAX MRN: [id number] date: 1975 Sex: M Assigned Patient Location: LAB Current Patient Location: Accession/Order Number: [id number] Exam Date: 01/03/2024 08:20 Report Date: 01/04/2024 09:03 At the request of: CHRISTIANA MARTIN Procedure: XR chest 2V EXAMINATION: XR chest 2V HISTORY: Pre Operative Evaluation Z01.812 COMPARISON: No relevant comparison available. FINDINGS: LUNGS: No significant pulmonary parenchymal abnormalities. VASCULATURE: No increased pulmonary vasculature. PLEURA: No pneumothorax, effusion, or pleural thickening. CARDIAC: No cardiomegaly or cardiac silhouette abnormality. MEDIASTINUM: No visible mass or adenopathy. BONES: No fracture or visible bone lesion. OTHER: Negative. XR/XR chest 2V IMPRESSION: 1. No acute cardiopulmonary process or significant chronic changes. Electronically authenticated by: DANIEL KWON Date: 01/04/2024 09:03
[2024-01-03 08:22] LABS: Hematocrit 48.6 % (42.0-54.0); Hemoglobin 16.2 g/dL (14.0-18.0); Mean Corpuscular HGB Conc 33.3 g/dL (29.9-35.2); Mean Corpuscular Hemoglobin 30.7 pg (25.9-34.0); Mean Corpuscular Volume 92.2 fL (80.0-94.0); Mean Platelet Volume 9.6 fL (9.5-13.5); Platelet Count 272 10^3/uL (150-450); Red Blood Count 5.27 10^6/uL (4.70-6.10); Red Cell Distribution Width 14.2 % (11.0-15.0); White Blood Count 19.9 10^3/uL (4.0-11.0)
[2024-01-03 08:37] LABS: INR 0.97; Partial Thromboplastin Time 27.8 sec (22.3-36.2); Prothrombin Time 10.3 sec (9.0-11.6)
[2024-01-03 08:39] LABS: Anion Gap 13.5; BUN Creatinine Ratio 17.7; Calcium 9.3 mg/dL (8.5-10.1); Carbon Dioxide 30.8 mmol/L (21.0-32.0); Chloride 101 mmol/L (98-107); Estimated GFR (African America >60 (>=60 mL/min/1.73m^2); Estimated GFR (Non-African Ame >60 (>=60 mL/min/1.73m^2); Glucose 84 mg/dL (74-106); Potassium 4.3 mmol/L (3.5-5.1); Sodium 141 mmol/L (136-145)
[2024-01-03 09:45] LABS: Basophils Abs Manual 0.19 10^3/uL (0.00-0.10); Eosinophils Absolute Manual 0.59 10^3/uL (0.00-0.70); Lymphocytes Absolute Manual 7.76 10^3/uL (1.20-3.80); Monocytes Absolute Manual 0.99 10^3/uL (0.30-0.80); Segmented Neut Absolute Manual 10.34 10^3/uL (1.4-6.5)
== END 2024-01-03 08:01 | disposition home or self-care (01) ==
LOC: LAB 08:01
PROVIDERS: PCP Physician Assistant; Visit Provider Orthopaedic Surgery Orthopaedic Surgery of the Spine
DX: Z01.810 Encounter for preprocedural cardiovascular examination (principal); M51.26 Other intervertebral disc displacement, lumbar region
CPT/HCPCS: 36415; 71046; 80048; 85007; 85027; 85610; 85730; 87081

== ENCOUNTER 2024-02-21 11:48 | Outpatient (OUT) | payer OTHER, SELFPAY ==
--- NOTE | 2024-02-21 | XR_ITS ---
The [address] [address] Patient Name: NATHANIEL LOMAX MRN: [id number] date: 1975 Sex: M Assigned Patient Location: Current Patient Location: Accession/Order Number: [id number] Exam Date: 02/21/2024 11:51 Report Date: 02/24/2024 07:59 At the request of: CHRISTIANA MARTIN Procedure: XR lumbar spine 2-3V EXAMINATION: XR lumbar spine 2-3V HISTORY: LUMBAR SPINE PAIN COMPARISON: No relevant comparison available. FINDINGS: BONES: Levocurvature with no acute fracture or spondylolisthesis. Moderate spondylosis and facet osteoarthropathy DISC SPACES: Normal. No significant disc height narrowing, subluxation, or endplate abnormality. PARASPINOUS: Negative. No paraspinous abnormality is seen. OTHER: Negative. XR/XR lumbar spine 2-3V IMPRESSION: Moderate degenerative changes. Electronically authenticated by: JESSICA PETERSON Date: 02/24/2024 07:59
== END 2024-02-21 11:49 | disposition home or self-care (01) ==
LOC: EC 11:48
PROVIDERS: PCP Physician Assistant; Visit Provider Orthopaedic Surgery Orthopaedic Surgery of the Spine
DX: M54.50 Low back pain, unspecified (principal); M51.369 Other intervertebral disc degeneration, lumbar region without mention of lumbar back pain or lower extremity pain
CPT/HCPCS: 72100